=== PATIENT | female | born 1945 | race Caucasian/White ===

== ENCOUNTER → 2018-02-09 | Outpatient (CLI) | payer BC, MEDICARE | LOC: M RAD 06:38 | DX: I15.0 Renovascular hypertension (principal); N18.3 Chronic kidney disease, stage 3 (moderate) | CPT/HCPCS: 76775 ==

== ENCOUNTER 2021-05-05 07:44 | Inpatient (IN) | payer BC, MEDICARE ==
[2021-05-05] VITALS (11 sets, daily range): BP systolic 105–140; BP diastolic 57–65; O2SAT 86–95
[~2021-05-05] VITALS: Ht 167.6 cm; Wt 76.3 kg
[2021-05-05] MEDS ORDERED: METO1TAB32 PO (07:54)
[2021-05-05] MEDS ORDERED: SOD1.479 (07:54)
[2021-05-05] MEDS ORDERED: AMLO1TAB24 PO (07:54)
[2021-05-05] MEDS ORDERED: OMEP40CA5 PO (07:54)
[2021-05-05] MEDS ORDERED: ACETAMINOPHEN TAB 650MG DOSE (2X325MG) PO ONE (08:15)
[2021-05-05 08:49] LABS: ABG BASE EXCESS -1.4 (-2.0-2.0); ABG HCO3 21.1 MEQ/L (22.0-26.0); ABG O2 SATURATION 91.9 % (95.0-99.0); ABG PARTIAL PRESSURE CO2 29.3 mmHg (35.0-45.0); ABG PARTIAL PRESSURE O2 58.5 mmHg (75.0-100.0); ABG STANDARD HCO3 23.2 MEQ/L (22.0-26.0); ABG pH (ARTERIAL) 7.476 UNITS (7.350-7.450)
[2021-05-05 08:53] LABS: BASO % 0.1 % (0.0-1.0); EOS % 0.3 % (0.0-3.0); HEMATOCRIT 36.8 % (36.0-47.0); HEMOGLOBIN 11.9 g/dl (12.0-15.5); LYMPH # 0.9 10^3/uL (1.5-5.0); LYMPH % 8.6 % (24.0-44.0); MEAN CORPUSCULAR HEMOGLOBIN 29.8 pg (27.0-33.0); MEAN CORPUSCULAR HGB CONC 32.3 g/dl (32.0-36.5); MEAN CORPUSCULAR VOLUME 92.2 fl (80.0-96.0); MONO # 0.3 10^3/uL (0.0-0.8); MONO % 2.8 % (2.0-8.0); NEUTROPHILS # 9.2 10^3/uL (1.5-8.5); NEUTROPHILS % 87.7 % (36.0-66.0); PLATELET COUNT, AUTOMATED 225 10^3/uL (150-450); RED BLOOD COUNT 3.99 10^6/uL (4.00-5.40); WHITE BLOOD COUNT 10.5 10^3/uL (4.0-10.0)
[2021-05-05 09:11] LABS: INR 1.05; PROTHROMBIN TIME 14.1 SECONDS (12.7-14.5)
[2021-05-05 09:12] LABS: PARTIAL THROMBOPLASTIN TIME 33.9 SECONDS (25.9-37.0)
[2021-05-05 09:14] LABS: D-DIMER QUANT 1332.86 ng/ml (<500)
[2021-05-05 09:48] LABS: CK-MB VALUE MASS < 1.0 NG/ML (<3.6); CPK CREATINE PHOSPHOKINASE 80 U/L (26-192); MB/CK RELATIVE INDEX 1.25 (< OR =4)
[2021-05-05 09:50] LABS: ALBUMIN 2.9 GM/DL (3.2-5.2); BILIRUBIN,TOTAL 0.6 MG/DL (0.2-1.0); C REACTIVE PROTEIN QUANTITATIV 13.5 MG/DL (0.00-0.30); CALCIUM LEVEL 8.6 MG/DL (8.8-10.2); CREATININE FOR GFR 1.47 MG/DL (0.55-1.30); MAGNESIUM LEVEL 1.8 MG/DL (1.8-2.4); POTASSIUM SERUM 4.9 MEQ/L (3.5-5.1); TOTAL PROTEIN 6.3 GM/DL (6.4-8.2)
[2021-05-05] MEDS ORDERED: ISOVUE-370 76% 100ML VIAL As Ordered ONE (10:27)
[2021-05-05] MEDS ORDERED: IBUPROFEN 600MG TAB PO ONE (10:50)
[2021-05-05] MEDS ORDERED: ECOT81TA5 PO (12:22)
[2021-05-05] MEDS ORDERED: HOME MED LIST COMPLETE! XX SCH (12:25)
[2021-05-05] MEDS: NS 1,000 ML IV SCH (13:25)
[2021-05-05 13:44] LABS: HEMATOCRIT 33.5 % (36.0-47.0); HEMOGLOBIN 10.9 g/dl (12.0-15.5); MEAN CORPUSCULAR HEMOGLOBIN 29.9 pg (27.0-33.0); MEAN CORPUSCULAR HGB CONC 32.5 g/dl (32.0-36.5); PLATELET COUNT, AUTOMATED 212 10^3/uL (150-450); RED BLOOD COUNT 3.64 10^6/uL (4.00-5.40); WHITE BLOOD COUNT 9.7 10^3/uL (4.0-10.0)
[2021-05-05 13:54] LABS: INR 1.1; PROTHROMBIN TIME 14.7 SECONDS (12.7-14.5)
[2021-05-05 13:58] LABS: D-DIMER QUANT 1250.02 ng/ml (<500)
[2021-05-05 14:13] LABS: RSV AMPLIFICATION NEGATIVE (NEGATIVE)
[2021-05-05 14:14] LABS: LYMPHOCYTES 11 % (16-44); MONOCYTES 1 % (0-5); NEUTROPHILS 88 % (28-66); PLATELET ESTIMATE NORMAL (NORMAL)
[2021-05-05 14:52] LABS: ALBUMIN 2.7 GM/DL (3.2-5.2); BILIRUBIN,DIRECT 0.2 MG/DL (0.0-0.2); BILIRUBIN,TOTAL 0.5 MG/DL (0.2-1.0); C REACTIVE PROTEIN QUANTITATIV 14.7 MG/DL (0.00-0.30); CALCIUM LEVEL 8.2 MG/DL (8.8-10.2); CREATININE FOR GFR 1.31 MG/DL (0.55-1.30); GLOMERULAR FILTRATION RATE 42.3 (>39); MAGNESIUM LEVEL 2.1 MG/DL (1.8-2.4); POTASSIUM SERUM 4.1 MEQ/L (3.5-5.1); TOTAL PROTEIN 5.7 GM/DL (6.4-8.2)
[2021-05-05] MEDS ORDERED: SODIUM CHLORIDE 0.9% INJ 10 ML SYR IV ONE (15:00)
[2021-05-05] MEDS ORDERED: REMDESIVIR 200 MG in NS 250 ML IV ONE (15:00)
[2021-05-05] MEDS: dexameTHASONE 4 MG/ML 1ML VIAL (J1100 PER 1MG) IV SCH (15:51)
[2021-05-05 19:13] LABS: APPEARANCE, URINE CLOUDY (CLEAR); BACTERIA, URINE AUTO NEGATIVE (NEGATIVE); BILIRUBIN, URINE AUTO NEGATIVE (NEGATIVE); BLOOD, URINE BLOOD NEGATIVE (NEGATIVE); COLOR, URINE YELLOW (YELLOW); GLUCOSE, URINE (UA) AUTO NEGATIVE (NEGATIVE); KETONE, URINE AUTO NEGATIVE (NEGATIVE); LEUKOCYTE ESTERASE, URINE AUTO 1+ (NEGATIVE); MUCUS, URINE SMALL (NEGATIVE); NITRITE, URINE AUTO NEGATIVE (NEGATIVE); PROTEIN, URINE AUTO 1+ mg/dL (NEGATIVE); RBC, URINE AUTO 3 /HPF (0-3); SQUAMOUS EPITHELIAL CELL UR AU 3 /HPF (0-6); URIC ACID CRYSTALS MODERATE; UROBILINOGEN, URINE AUTO 0.2 mg/dL (0.0-2.0); WBC, URINE AUTO 11 /HPF (0-3)
[2021-05-05] MEDS: amLODIPine 5 MG TAB PO SCH (20:12)
[2021-05-05] MEDS: ASPIRIN 81MG ENTERIC TABLET PO SCH (20:12)
[2021-05-05 20:14] LABS: SPECIFIC GRAVITY URINE AUTO >1.060 (1.002-1.035)
[2021-05-06] VITALS (11 sets, daily range): BP systolic 118–142; BP diastolic 59–65; O2SAT 90–96
[2021-05-06] MEDS: NS 1,000 ML IV SCH (04:42)
[2021-05-06 09:12] LABS: BASO % 0.1 % (0.0-1.0); HEMATOCRIT 34.3 % (36.0-47.0); LYMPH # 0.9 10^3/uL (1.5-5.0); LYMPH % 6.4 % (24.0-44.0); MEAN CORPUSCULAR HEMOGLOBIN 29.8 pg (27.0-33.0); MEAN CORPUSCULAR HGB CONC 32.1 g/dl (32.0-36.5); MONO # 0.2 10^3/uL (0.0-0.8); MONO % 1.6 % (2.0-8.0); NEUTROPHILS # 12.6 10^3/uL (1.5-8.5); NEUTROPHILS % 90.8 % (36.0-66.0); PLATELET COUNT, AUTOMATED 215 10^3/uL (150-450); RED BLOOD COUNT 3.69 10^6/uL (4.00-5.40); WHITE BLOOD COUNT 13.8 10^3/uL (4.0-10.0)
[2021-05-06 09:28] LABS: CALCIUM LEVEL 8.2 MG/DL (8.8-10.2); CREATININE FOR GFR 1.04 MG/DL (0.55-1.30); GLOMERULAR FILTRATION RATE 55.1 (>39); MAGNESIUM LEVEL 2.1 MG/DL (1.8-2.4); POTASSIUM SERUM 4.2 MEQ/L (3.5-5.1)
[2021-05-06] MEDS: OMEPRAZOLE 20MG CAP PO SCH (10:07)
[2021-05-06] MEDS: ENOXAPARIN 40MG/0.4ML SYRINGE (J1650 PER 10MG) SC SCH (10:07)
[2021-05-06] MEDS: dexameTHASONE 4 MG/ML 1ML VIAL (J1100 PER 1MG) IV SCH (10:08)
[2021-05-06] MEDS: METOPROLOL SUCC *XL* 12.5MG PER 1/2 TAB (TopROL *XL*) PO SCH (10:43)
[2021-05-06] MEDS: guaiFENesin ER 600 MG TAB PO SCH ×2 (13:11→22:00)
[2021-05-06 13:54] LABS: FREE T4 1.13 NG/DL (0.76-1.46); THYROID STIMULATING HORMONE 0.283 uIU/ML (0.358-3.740)
[2021-05-06] MEDS ORDERED: REMDESIVIR 100 MG in NS 250 ML IV SCH (15:00)
[2021-05-06] MEDS ORDERED: SODIUM CHLORIDE 0.9% INJ 10 ML SYR IV SCH (15:00)
[2021-05-06] MEDS: ASPIRIN 81MG ENTERIC TABLET PO SCH (21:59)
[2021-05-06] MEDS: amLODIPine 5 MG TAB PO SCH (22:00)
[2021-05-07 05:25] VITALS: BP 118/57
[2021-05-07 06:19] LABS: BASO % 0.1 % (0.0-1.0); HEMATOCRIT 32.6 % (36.0-47.0); HEMOGLOBIN 10.5 g/dl (12.0-15.5); LYMPH # 0.9 10^3/uL (1.5-5.0); LYMPH % 8.5 % (24.0-44.0); MEAN CORPUSCULAR HEMOGLOBIN 30.1 pg (27.0-33.0); MEAN CORPUSCULAR HGB CONC 32.2 g/dl (32.0-36.5); MEAN CORPUSCULAR VOLUME 93.4 fl (80.0-96.0); MONO # 0.3 10^3/uL (0.0-0.8); MONO % 2.6 % (2.0-8.0); NEUTROPHILS # 9.4 10^3/uL (1.5-8.5); NEUTROPHILS % 88.4 % (36.0-66.0); PLATELET COUNT, AUTOMATED 235 10^3/uL (150-450); RED BLOOD COUNT 3.49 10^6/uL (4.00-5.40); WHITE BLOOD COUNT 10.6 10^3/uL (4.0-10.0)
[2021-05-07 06:35] LABS: INR 1.12; PROTHROMBIN TIME 14.9 SECONDS (12.7-14.5)
[2021-05-07 06:36] LABS: PARTIAL THROMBOPLASTIN TIME 44.5 SECONDS (25.9-37.0)
[2021-05-07 06:50] LABS: ALBUMIN 2.3 GM/DL (3.2-5.2); ALT/SGPT 27 U/L (12-78); BILIRUBIN,DIRECT < 0.1 MG/DL (0.0-0.2); BILIRUBIN,TOTAL 0.2 MG/DL (0.2-1.0); BLOOD UREA NITROGEN 26 MG/DL (7-18); CARBON DIOXIDE LEVEL 23 MEQ/L (21-32); CHLORIDE LEVEL 111 MEQ/L (98-107); CREATININE FOR GFR 1.12 MG/DL (0.55-1.30); FERRITIN 1152 NG/ML (8-252); GLOMERULAR FILTRATION RATE 50.6 (>39); GLUCOSE, FASTING 141 MG/DL (70-100); LDH LACTATE DEHYDROGENASE 193 U/L (84-246); MAGNESIUM LEVEL 2.2 MG/DL (1.8-2.4); NT-PRO BNP 551 PG/ML (<125); POTASSIUM SERUM 4.7 MEQ/L (3.5-5.1); SODIUM LEVEL 141 MEQ/L (136-145); TOTAL PROTEIN 5.9 GM/DL (6.4-8.2)
[2021-05-07] MEDS: OMEPRAZOLE 20MG CAP PO SCH (08:40)
[2021-05-07] MEDS: guaiFENesin ER 600 MG TAB PO SCH (08:40)
[2021-05-07 08:41] VITALS: BP 118/52
[2021-05-07] MEDS: METOPROLOL SUCC *XL* 12.5MG PER 1/2 TAB (TopROL *XL*) PO SCH (08:41)
[2021-05-07] MEDS: dexameTHASONE 4 MG/ML 1ML VIAL (J1100 PER 1MG) IV SCH (08:42)
[2021-05-07] MEDS: ENOXAPARIN 40MG/0.4ML SYRINGE (J1650 PER 10MG) SC SCH (08:42)
[2021-05-07] MEDS ORDERED: MUCI600T31 PO (09:28)
[2021-05-07] MEDS ORDERED: PRED10TA2 PO (09:28)
[2021-05-07 11:43] VITALS: BP 136/63
[2021-06-23] MEDS ORDERED: APAP325T4 PO (08:22)
== END 2021-05-07 13:05 | disposition home health service (06) | DRG 137 ==
LOC: M ED 07:44 → M ED INP 12:49 → ENRESERV 13:23 → M 4MAIN 14:45
PROVIDERS: ADMIT Family Medicine; ATTEND Internal Medicine
DX: U07.1 COVID-19 (principal); J96.01 Acute respiratory failure with hypoxia; J12.82 Pneumonia due to coronavirus disease 2019; N17.9 Acute kidney failure, unspecified; E87.2 Acidosis; R91.8 Other nonspecific abnormal finding of lung field; K21.9 Gastro-esophageal reflux disease without esophagitis; E01.0 Iodine-deficiency related diffuse (endemic) goiter; Z79.82 Long term (current) use of aspirin; Z79.899 Other long term (current) drug therapy; E78.5 Hyperlipidemia, unspecified; Z87.891 Personal history of nicotine dependence; I10 Essential (primary) hypertension

== ENCOUNTER → 2021-06-23 | Outpatient (CLI) | payer BC, MEDICARE ==
[~2021-06-23] MED LIST: AMLO1TAB24 PO; APAP325T4 PO; ECOT81TA5 PO; METO1TAB32 PO; MUCI600T31 PO; OMEP40CA5 PO; PRED10TA2 PO; SOD1.479
== END ==
LOC: M PLARAD 12:03
PROVIDERS: ATTEND Internal Medicine Pulmonary Disease
DX: R91.8 Other nonspecific abnormal finding of lung field (principal); N60.11 Diffuse cystic mastopathy of right breast; N60.12 Diffuse cystic mastopathy of left breast
CPT/HCPCS: 78815; A9552

== ENCOUNTER → 2021-07-02 | Outpatient (CLI) | payer BC, MEDICARE | LOC: M LABSMTC 09:23 | PROVIDERS: ATTEND Anesthesiology | DX: Z01.812 Encounter for preprocedural laboratory examination (principal); Z11.52 Encounter for screening for COVID-19 ==

== ENCOUNTER 2021-07-07 09:12 | Day surgery (SDC) | payer BC, MEDICARE ==
[~2021-07-07] VITALS: Ht 168.9 cm; Wt 81.1 kg
[2021-07-07] MEDS ORDERED: LIDOCAINE 2% 100MG/5ML SDV (FOR ANES.) As Ordered ONE (10:08)
[2021-07-07] MEDS ORDERED: propofoL 200 MG/20 ML VIAL As Ordered ONE ×2 (10:08→10:48)
[2021-07-07] MEDS ORDERED: fentaNYL 100 MCG/2 ML INJECTION As Ordered ONE (10:08)
[2021-07-07] MEDS ORDERED: NS 1,000 ML IV ONE (10:10)
[2021-07-07 11:19] VITALS: BP 131/74
== END 2021-07-07 11:21 | disposition home or self-care (01) ==
LOC: M OPP 09:12
PROVIDERS: ATTEND Internal Medicine Gastroenterology
DX: Z12.11 Encounter for screening for malignant neoplasm of colon (principal); K57.30 Diverticulosis of large intestine without perforation or abscess without bleeding; K64.0 First degree hemorrhoids; K22.89 Other specified disease of esophagus; K44.9 Diaphragmatic hernia without obstruction or gangrene; R13.10 Dysphagia, unspecified; R07.89 Other chest pain; Z79.82 Long term (current) use of aspirin; Z79.899 Other long term (current) drug therapy; Z88.8 Allergy status to other drugs, medicaments and biological substances
CPT/HCPCS: 43239; 43249; 45378; 88305; J3010

== ENCOUNTER → 2021-08-15 | Outpatient (CLI) | payer BC, MEDICARE ==
[2021-08-15 09:50] LABS: CREATININE FOR GFR 1.22 MG/DL (0.55-1.30); GLOMERULAR FILTRATION RATE 45.9 (>39)
== END ==
LOC: M LAB 08:01
PROVIDERS: ATTEND Internal Medicine Pulmonary Disease
DX: R91.8 Other nonspecific abnormal finding of lung field (principal)

== ENCOUNTER → 2021-08-20 | Outpatient (CLI) | payer BC, MEDICARE ==
[~2021-08-20] MED LIST changes: +ISOVUE-370 76% 100ML VIAL As Ordered ONE
== END ==
LOC: M RAD 10:02
PROVIDERS: ATTEND Internal Medicine Pulmonary Disease
DX: R91.8 Other nonspecific abnormal finding of lung field (principal)
CPT/HCPCS: 71260; Q9967

== ENCOUNTER → 2021-11-28 | Outpatient (CLI) | payer BC, MEDICARE | LOC: M RAD 09:25 | PROVIDERS: ATTEND Internal Medicine Pulmonary Disease | DX: R91.8 Other nonspecific abnormal finding of lung field (principal) | CPT/HCPCS: 71260; Q9967 ==

== ENCOUNTER → 2022-03-16 | Outpatient (CLI) | payer BC, MEDICARE ==
[~2022-03-16] MED LIST changes: -ISOVUE-370 76% 100ML VIAL As Ordered ONE
== END ==
LOC: M PLAIMG 12:09
PROVIDERS: ATTEND Internal Medicine Pulmonary Disease
DX: R91.8 Other nonspecific abnormal finding of lung field (principal); J43.9 Emphysema, unspecified; E07.9 Disorder of thyroid, unspecified; N60.01 Solitary cyst of right breast; N60.02 Solitary cyst of left breast

== ENCOUNTER → 2023-04-09 | Outpatient (CLI) | payer BC, MEDICARE | LOC: M PLAIMG 11:10 | PROVIDERS: ATTEND Internal Medicine Pulmonary Disease | DX: R91.8 Other nonspecific abnormal finding of lung field (principal); E04.8 Other specified nontoxic goiter; J43.2 Centrilobular emphysema; N60.02 Solitary cyst of left breast ==

== ENCOUNTER 2023-04-28 22:54 | Inpatient (IN) | payer BC, MEDICARE ==
[~2023-04-28] VITALS: Ht 167.6 cm; Wt 86.5 kg
[~2023-04-28 22:54] MED LIST changes: -ALBU8.5H INH; -CEFD300CAP PO; -FLOM0.4C39 PO
[2023-04-29] VITALS (11 sets, daily range): BP systolic 112–152; BP diastolic 54–64; TEMP 96.8–98.7; O2SAT 82–96
[2023-04-29] MEDS ORDERED: ACETAMINOPHEN TAB 650MG DOSE (2X325MG) PO PRN (01:40)
[2023-04-29] MEDS ORDERED: NS 1,000 ML IV SCH (01:40)
[2023-04-29 03:08] LABS: HEMATOCRIT 32.8 % (36.0-47.0); HEMOGLOBIN 10.6 g/dl (12.0-15.5); MEAN CORPUSCULAR HEMOGLOBIN 30.7 pg (27.0-33.0); MEAN CORPUSCULAR HGB CONC 32.3 g/dl (32.0-36.5); MEAN CORPUSCULAR VOLUME 95.1 fl (80.0-96.0); PLATELET COUNT, AUTOMATED 297 10^3/uL (150-450); RED BLOOD COUNT 3.45 10^6/uL (4.00-5.40); WHITE BLOOD COUNT 12.9 10^3/uL (4.0-10.0)
[2023-04-29 03:12] LABS: ALBUMIN 3.1 G/DL (3.2-5.2); ALKALINE PHOSPHATASE 62 U/L (46-116); ALT/SGPT 14 U/L (7.0-40); AST/SGOT < 8 U/L (<34); BILIRUBIN,TOTAL 0.6 MG/DL (0.3-1.2); BLOOD UREA NITROGEN 25 MG/DL (9-23); CALCIUM LEVEL 8.4 MG/DL (8.3-10.6); CARBON DIOXIDE LEVEL 25 MMOL/L (20-31); CHLORIDE LEVEL 108 MMOL/L (98-107); CREATININE FOR GFR 1.29 MG/DL (0.55-1.30); GLOMERULAR FILTRATION RATE 42.8 (>39); GLUCOSE, FASTING 108 MG/DL (74-106); SODIUM LEVEL 142 MMOL/L (136-145); TOTAL PROTEIN 5.1 G/DL (5.7-8.2)
[2023-04-29 03:22] LABS: INR 1.05; PROTHROMBIN TIME 13.4 SECONDS (12.5-14.5)
[2023-04-29] MEDS ORDERED: ALBU8.5H INH (04:02)
[2023-04-29] MEDS ORDERED: HOME MED LIST COMPLETE! XX SCH (04:05)
[2023-04-29] MEDS ORDERED: ONDANSETRON 4MG 2ML VIAL IV PRN ×2 (05:20→10:50)
[2023-04-29] MEDS ORDERED: ISOVUE-300 61% 100ML VIAL As Ordered ONE (09:30)
[2023-04-29] MEDS ORDERED: fentaNYL 100 MCG/2 ML INJECTION As Ordered ONE (10:26)
[2023-04-29] MEDS ORDERED: MIDAZOLAM INJ 2MG/2ML VIAL As Ordered ONE (10:26)
[2023-04-29] MEDS ORDERED: LIDOCAINE 2% 100MG/5ML SDV (FOR ANES.) As Ordered ONE (10:26)
[2023-04-29] MEDS ORDERED: propofoL 200 MG/20 ML VIAL As Ordered ONE (10:26)
[2023-04-29] MEDS ORDERED: cefTRIAXone SOD 1GM VIAL As Ordered ONE (10:34)
[2023-04-29] MEDS ORDERED: KETOROLAC 60MG 2ML VIAL As Ordered ONE (10:49)
[2023-04-29] MEDS ORDERED: METOCLOPRAMIDE INJ 10MG/2ML VIAL As Ordered ONE (10:49)
[2023-04-29] MEDS ORDERED: fentaNYL 100 MCG/2 ML INJECTION IV PRN (10:50)
[2023-04-29] MEDS ORDERED: oxyCODONE 5MG TAB PO PRN (10:50)
[2023-04-29] MEDS ORDERED: LR 1,000 ML IV SCH (10:50)
[2023-04-29] MEDS ORDERED: FLOM0.4C39 PO (10:58)
[2023-04-29] MEDS ORDERED: CEFD300CAP PO (10:58)
[2023-04-29] MEDS: HYDROMORPHONE HCL 0.5 MG/ 0.5 ML SYRINGE IV PRN ×3 (11:22→11:34)
[2023-04-29] MEDS: TAMSULOSIN 0.4 MG CAP PO SCH (12:45)
[2023-04-29] MEDS ORDERED: NS 500 ML IV ONE ×2 (18:30→18:35)
[2023-04-29] MEDS: NS 1,000 ML IV SCH (19:19)
[2023-04-29] MEDS ORDERED: cefTRIAXone SOD 1 GM in D5W MINI-BAG PLUS 50 ML IV SCH (20:00)
[2023-04-30 00:45] LABS: VENOUS BASE EXCESS -4.4 (-2.0-2.0); VENOUS HCO3 21.7 MMOL/L (23.0-27.0); VENOUS O2 SATURATION 96.7 % (60.0-80.0); VENOUS PARTIAL PRESSURE O2 94.8 mmHg (30.0-50.0); VENOUS PH 7.311 UNITS (7.330-7.430); VENOUS STANDARD HCO3 20.8 MMOL/L; VENOUS TOTAL CO2 23.1 MMOL/L (24.0-28.0)
[2023-04-30 01:00] LABS: HEMATOCRIT 30.9 % (36.0-47.0); MEAN CORPUSCULAR HEMOGLOBIN 31.5 pg (27.0-33.0); MEAN CORPUSCULAR HGB CONC 32.4 g/dl (32.0-36.5); MEAN CORPUSCULAR VOLUME 97.5 fl (80.0-96.0); PLATELET COUNT, AUTOMATED 270 10^3/uL (150-450); RED BLOOD COUNT 3.17 10^6/uL (4.00-5.40)
[2023-04-30 01:04] LABS: WHITE BLOOD COUNT 37.1 10^3/uL (4.0-10.0)
[2023-04-30 01:15] LABS: ALBUMIN 2.9 G/DL (3.2-5.2); BILIRUBIN,TOTAL 0.6 MG/DL (0.3-1.2); CREATININE FOR GFR 1.47 MG/DL (0.55-1.30); GLOMERULAR FILTRATION RATE 36.8 (>39); POTASSIUM SERUM 4.4 MMOL/L (3.5-5.1); TOTAL PROTEIN 5.1 G/DL (5.7-8.2)
[2023-04-30] MEDS: PIPERACILLIN/TAZOBACTAM SOD 3.375 GM in D5W MINI-BAG PLUS 50 ML IV SCH ×2 (01:55→07:51)
[2023-04-30] MEDS: NS 1,000 ML IV SCH (01:56)
[2023-04-30 02:00] VITALS: BP 111/57; TEMP 97.7; O2SAT 94
[2023-04-30] MEDS ORDERED: VANCOMYCIN HCL 750 MG, VIAL MATE ADAPTER 1 EACH in D5W 250 ML IV ONE ×3 (03:00→13:00)
[2023-04-30 06:00] VITALS: BP 117/49; TEMP 97.7; O2SAT 94
[2023-04-30 06:13] LABS: HEMATOCRIT 30.4 % (36.0-47.0); HEMOGLOBIN 9.7 g/dl (12.0-15.5); MEAN CORPUSCULAR HEMOGLOBIN 31.6 pg (27.0-33.0); MEAN CORPUSCULAR HGB CONC 31.9 g/dl (32.0-36.5); PLATELET COUNT, AUTOMATED 252 10^3/uL (150-450); RED BLOOD COUNT 3.07 10^6/uL (4.00-5.40)
[2023-04-30 06:16] LABS: WHITE BLOOD COUNT 30.4 10^3/uL (4.0-10.0)
[2023-04-30 06:41] LABS: ALBUMIN 2.8 G/DL (3.2-5.2); BILIRUBIN,TOTAL 0.7 MG/DL (0.3-1.2); CALCIUM LEVEL 8.1 MG/DL (8.3-10.6); CREATININE FOR GFR 1.47 MG/DL (0.55-1.30); GLOMERULAR FILTRATION RATE 36.8 (>39); POTASSIUM SERUM 4.5 MMOL/L (3.5-5.1); TOTAL PROTEIN 4.9 G/DL (5.7-8.2)
[2023-04-30 07:42] LABS: C REACTIVE PROTEIN QUANTITATIV 15.6 MG/DL (<1.0)
[2023-04-30 07:51] LABS: PROCALCITONIN 45.54 ng/ml
[2023-04-30] MEDS: TAMSULOSIN 0.4 MG CAP PO SCH (07:51)
[2023-04-30 10:00] VITALS: BP 118/58; TEMP 97.7; O2SAT 92
[2023-04-30 14:00] VITALS: BP 110/56; TEMP 98.1; O2SAT 92
[2023-04-30] MEDS: PIPERACILLIN/TAZOBACTAM SOD 2.25 GM in D5W MINI-BAG PLUS 50 ML IV SCH ×2 (14:50→21:03)
[2023-04-30] MEDS: HEPARIN SOD (PORCINE) 5000UNITS/ML 1ML VIAL/SYRINGE SQ SCH ×2 (14:51→21:04)
[2023-04-30 18:00] VITALS: BP 125/49; TEMP 97.9; O2SAT 92
[2023-04-30] MEDS ORDERED: VANCOMYCIN INTERMITTENT/PULSE DOSING BY CLINICAL PHARMACIST PER DOSING PROTOCOL XX SCH (19:00)
[2023-04-30] MEDS ORDERED: VANCOMYCIN HCL 1,000 MG, VIAL MATE ADAPTER 1 EACH in D5W 250 ML IV SCH ×2 (21:00→22:00)
[2023-04-30 22:00] VITALS: BP 138/57; TEMP 97.7; O2SAT 93
[2023-05-01 02:00] VITALS: BP 108/51; TEMP 97.7; O2SAT 93
[2023-05-01] MEDS: PIPERACILLIN/TAZOBACTAM SOD 2.25 GM in D5W MINI-BAG PLUS 50 ML IV SCH (02:47)
[2023-05-01] MEDS: HEPARIN SOD (PORCINE) 5000UNITS/ML 1ML VIAL/SYRINGE SQ SCH ×3 (05:14→21:02)
[2023-05-01 05:26] LABS: BASO % 0.3 % (0.0-1.0); EOS # 0.3 10^3/uL (0.0-0.5); EOS % 2.1 % (0.0-3.0); HEMATOCRIT 29.8 % (36.0-47.0); HEMOGLOBIN 9.4 g/dl (12.0-15.5); LYMPH # 1.6 10^3/uL (1.5-5.0); LYMPH % 10.9 % (24.0-44.0); MEAN CORPUSCULAR HEMOGLOBIN 30.8 pg (27.0-33.0); MEAN CORPUSCULAR HGB CONC 31.5 g/dl (32.0-36.5); MEAN CORPUSCULAR VOLUME 97.7 fl (80.0-96.0); MONO # 0.8 10^3/uL (0.0-0.8); MONO % 5.2 % (2.0-8.0); NEUTROPHILS # 11.6 10^3/uL (1.5-8.5); NEUTROPHILS % 80.7 % (36.0-66.0); PLATELET COUNT, AUTOMATED 221 10^3/uL (150-450); RED BLOOD COUNT 3.05 10^6/uL (4.00-5.40); WHITE BLOOD COUNT 14.3 10^3/uL (4.0-10.0)
[2023-05-01 05:52] LABS: C REACTIVE PROTEIN QUANTITATIV 9.8 MG/DL (<1.0)
[2023-05-01 05:53] LABS: CALCIUM LEVEL 8.2 MG/DL (8.3-10.6); CREATININE FOR GFR 1.25 MG/DL (0.55-1.30); GLOMERULAR FILTRATION RATE 44.4 (>39); MAGNESIUM LEVEL 1.8 MG/DL (1.8-2.4); POTASSIUM SERUM 4.4 MMOL/L (3.5-5.1)
[2023-05-01 06:00] VITALS: BP 116/54; TEMP 97.9; O2SAT 93
[2023-05-01] MEDS: TAMSULOSIN 0.4 MG CAP PO SCH (08:16)
[2023-05-01] MEDS: PIPERACILLIN/TAZOBACTAM SOD 3.375 GM in D5W MINI-BAG PLUS 50 ML IV SCH ×2 (08:28→14:39)
[2023-05-01] MEDS ORDERED: BISACODYL 10MG SUPP PR ONE (09:30)
[2023-05-01 10:00] VITALS: BP 134/56; TEMP 98.1; O2SAT 94
[2023-05-01] MEDS: MIRALAX *UNIT DOSE* 17GM PACKET PO SCH (11:12)
[2023-05-01 14:00] VITALS: BP 130/60; TEMP 97.9; O2SAT 93
[2023-05-01 18:00] VITALS: BP 138/60; TEMP 98.4; O2SAT 91
[2023-05-01 20:03] VITALS: BP 176/82; TEMP 98.6; O2SAT 94
[2023-05-01] MEDS ORDERED: ALBUTEROL 90 MCG/ACT 8GM HFA INHALER INH PRN (20:25)
[2023-05-01] MEDS ORDERED: ASPIRIN 81MG ENTERIC TABLET PO SCH (21:00)
[2023-05-01] MEDS ORDERED: amLODIPine 5 MG TAB PO SCH (21:00)
[2023-05-01] MEDS: CEFDINIR 300 MG CAP (OMNICEF) PO SCH (21:01)
[2023-05-01] MEDS ORDERED: RAMELTEON 8 MG TAB (ROZEREM) PO PRN (21:15)
[2023-05-02 02:00] VITALS: BP 126/59; TEMP 99; O2SAT 90
[2023-05-02 05:34] LABS: BASO # 0.1 10^3/uL (0.0-0.2); BASO % 0.5 % (0.0-1.0); EOS # 0.3 10^3/uL (0.0-0.5); EOS % 2.8 % (0.0-3.0); HEMATOCRIT 29.9 % (36.0-47.0); HEMOGLOBIN 9.6 g/dl (12.0-15.5); LYMPH # 2.2 10^3/uL (1.5-5.0); LYMPH % 21.3 % (24.0-44.0); MEAN CORPUSCULAR HEMOGLOBIN 30.7 pg (27.0-33.0); MEAN CORPUSCULAR HGB CONC 32.1 g/dl (32.0-36.5); MEAN CORPUSCULAR VOLUME 95.5 fl (80.0-96.0); MONO # 0.8 10^3/uL (0.0-0.8); MONO % 7.3 % (2.0-8.0); NEUTROPHILS % 66.6 % (36.0-66.0); PLATELET COUNT, AUTOMATED 252 10^3/uL (150-450); RED BLOOD COUNT 3.13 10^6/uL (4.00-5.40); WHITE BLOOD COUNT 10.5 10^3/uL (4.0-10.0)
[2023-05-02 05:59] LABS: C REACTIVE PROTEIN QUANTITATIV 7.4 MG/DL (<1.0)
[2023-05-02 06:00] LABS: CALCIUM LEVEL 8.6 MG/DL (8.3-10.6); CREATININE FOR GFR 1.15 MG/DL (0.55-1.30); GLOMERULAR FILTRATION RATE 48.8 (>39); MAGNESIUM LEVEL 1.7 MG/DL (1.8-2.4); POTASSIUM SERUM 4.2 MMOL/L (3.5-5.1)
[2023-05-02 06:18] VITALS: BP 142/64; TEMP 97.5; O2SAT 95
[2023-05-02] MEDS: HEPARIN SOD (PORCINE) 5000UNITS/ML 1ML VIAL/SYRINGE SQ SCH (06:37)
[2023-05-02 08:44] VITALS: BP 142/64
[2023-05-02] MEDS: CEFDINIR 300 MG CAP (OMNICEF) PO SCH (08:44)
[2023-05-02] MEDS: TAMSULOSIN 0.4 MG CAP PO SCH (08:44)
[2023-05-02] MEDS: MIRALAX *UNIT DOSE* 17GM PACKET PO SCH (09:00)
[2023-05-02] MEDS ORDERED: METOPROLOL SUCC *XL* 12.5MG PER 1/2 TAB (TopROL *XL*) PO SCH (09:00)
[2023-05-02 10:00] VITALS: BP 120/62; TEMP 97.9; O2SAT 91
[2023-05-02] MEDS ORDERED: MAG SULF 1GM/100ML (MAG RUN) 1 GM in IV 1 EA IV ONE (10:00)
[2023-05-02] MEDS ORDERED: CEFD300CAP PO (10:10)
[2023-05-02] MEDS ORDERED: MAGNESIUM OXIDE 400MG TAB (MAG-OX) PO ONE (10:30)
== END 2023-05-02 11:51 | disposition home health service (06) | DRG 463 ==
LOC: M MSPAV 04-29 01:30
PROVIDERS: ADMIT Family Medicine; ATTEND Family Medicine
PROC: 0T774DZ Dilation of Left Ureter with Intraluminal Device, Percutaneous Endoscopic Approach (ICD-10-PCS; principal; 2023-04-29 11:30)
DX: N39.0 Urinary tract infection, site not specified (principal); N17.9 Acute kidney failure, unspecified; E87.20 Acidosis, unspecified; J44.1 Chronic obstructive pulmonary disease with (acute) exacerbation; N13.2 Hydronephrosis with renal and ureteral calculous obstruction; I10 Essential (primary) hypertension; E78.5 Hyperlipidemia, unspecified; Z87.891 Personal history of nicotine dependence; Z88.8 Allergy status to other drugs, medicaments and biological substances; Z79.899 Other long term (current) drug therapy; Z79.82 Long term (current) use of aspirin; Z86.16 Personal history of COVID-19; Z68.31 Body mass index [BMI] 31.0-31.9, adult; R91.8 Other nonspecific abnormal finding of lung field; K21.9 Gastro-esophageal reflux disease without esophagitis

== ENCOUNTER → 2023-04-28 | Outpatient (CLI) | payer BC, MEDICARE ==
[~2023-04-28] MED LIST changes: +ALBU8.5H INH; +CEFD300CAP PO; +FLOM0.4C39 PO
== END ==
LOC: M RAD 10:56
PROVIDERS: ATTEND Family Medicine
DX: E04.2 Nontoxic multinodular goiter (principal)

== ENCOUNTER 2023-06-04 09:55 | Day surgery (SDC) | payer BC, MEDICARE ==
[~2023-06-04] VITALS: Ht 167.6 cm; Wt 82.7 kg
[~2023-06-04 09:55] MED LIST changes: +ACET-897 PO; +ALBU8.5H INH; +CEFD300CAP PO; +FLOM0.4C39 PO; +ceFAZolin SOD 2 GM in IV 1 EA IV ONE
[2023-06-04] MEDS ORDERED: LR 1,000 ML IV SCH (11:05)
[2023-06-04] MEDS ORDERED: ONDANSETRON 4MG 2ML VIAL As Ordered ONE (11:17)
[2023-06-04] MEDS ORDERED: fentaNYL 100 MCG/2 ML INJECTION As Ordered ONE (11:17)
[2023-06-04] MEDS ORDERED: LIDOCAINE 2% 100MG/5ML SDV (FOR ANES.) As Ordered ONE (11:17)
[2023-06-04] MEDS ORDERED: propofoL 200 MG/20 ML VIAL As Ordered ONE (11:17)
[2023-06-04] MEDS ORDERED: ISOVUE-300 61% 100ML VIAL As Ordered ONE (12:21)
[2023-06-04] MEDS ORDERED: MORPHINE 2 MG/ML 1ML VIAL IV PRN (13:20)
[2023-06-04] MEDS ORDERED: fentaNYL 100 MCG/2 ML INJECTION IV PRN (13:20)
[2023-06-04] MEDS ORDERED: ONDANSETRON 4MG 2ML VIAL IV PRN (13:20)
[2023-06-04] MEDS ORDERED: oxyCODONE 5MG TAB PO PRN (13:20)
[2023-06-04] MEDS ORDERED: PERCOCET 5MG/325MG TAB PO PRN (14:50)
[2023-06-04 15:40] VITALS: BP 173/75; TEMP 97.2; O2SAT 94
== END 2023-06-04 16:20 | disposition home or self-care (01) ==
LOC: M SDC 09:55
PROVIDERS: ATTEND Urology
DX: N20.0 Calculus of kidney (principal); J44.9 Chronic obstructive pulmonary disease, unspecified; I12.9 Hypertensive chronic kidney disease with stage 1 through stage 4 chronic kidney disease, or unspecified chronic kidney disease; N18.4 Chronic kidney disease, stage 4 (severe); I47.10 Supraventricular tachycardia, unspecified; Z79.899 Other long term (current) drug therapy; K21.9 Gastro-esophageal reflux disease without esophagitis; Z79.82 Long term (current) use of aspirin; E04.9 Nontoxic goiter, unspecified; Z88.8 Allergy status to other drugs, medicaments and biological substances; Z87.891 Personal history of nicotine dependence; Z90.710 Acquired absence of both cervix and uterus
CPT/HCPCS: 52332; 52352; 76000; 82365; C1769; C1894; C2617; J1100; J2405; J3010; Q9967

== ENCOUNTER → 2023-12-24 | Outpatient (CLI) | payer BC, MEDICARE ==
[~2023-12-24] MED LIST changes: +LIDOCAINE 1% MDV 20ML VIAL As Ordered ONE; -ceFAZolin SOD 2 GM in IV 1 EA IV ONE
[2023-12-24 12:50] VITALS: TEMP 97.9
[2023-12-24 14:02] VITALS: BP 185/90; O2SAT 96
== END ==
LOC: M IRPRO 12:21
PROVIDERS: ATTEND Otolaryngology
DX: E04.2 Nontoxic multinodular goiter (principal)

== ENCOUNTER → 2024-01-03 | Outpatient (CLI) | payer BC, MEDICARE ==
[~2024-01-03] MED LIST changes: -LIDOCAINE 1% MDV 20ML VIAL As Ordered ONE
== END ==
LOC: M RAD 11:18
PROVIDERS: ATTEND Urology
DX: N20.0 Calculus of kidney (principal); K76.0 Fatty (change of) liver, not elsewhere classified

== ENCOUNTER → 2024-05-01 | Outpatient (CLI) | payer BC, MEDICARE | LOC: M RAD 09:14 | PROVIDERS: ATTEND Internal Medicine Pulmonary Disease | DX: R91.8 Other nonspecific abnormal finding of lung field (principal) ==

== ENCOUNTER 2024-05-14 22:43 | Inpatient (IN) | payer BC, MEDICARE ==
[~2024-05-14] VITALS: Ht 167.6 cm; Wt 87.0 kg
[2024-05-15] VITALS (8 sets, daily range): BP systolic 124–144; BP diastolic 50–82; TEMP 96.6–98.1; O2SAT 91–96
[2024-05-15] MEDS: ACETAMINOPHEN *IV* 1,000 MG in IV 1 EA IV ONE (02:26)
[2024-05-15] MEDS: ONDANSETRON 4MG 2ML VIAL IV ONE (02:26)
[2024-05-15 02:31] LABS: BASO % 0.3 % (0.0-1.0); EOS # 0.2 10^3/uL (0.0-0.5); EOS % 1.1 % (0.0-3.0); HEMOGLOBIN 11.8 g/dl (12.0-15.5); LYMPH % 22.3 % (24.0-44.0); MEAN CORPUSCULAR HGB CONC 32.8 g/dl (32.0-36.5); MEAN CORPUSCULAR VOLUME 97.6 fl (80.0-96.0); MONO # 0.7 10^3/uL (0.0-0.8); MONO % 5.3 % (2.0-8.0); NEUTROPHILS # 9.4 10^3/uL (1.5-8.5); NEUTROPHILS % 70.6 % (36.0-66.0); PLATELET COUNT, AUTOMATED 339 10^3/uL (150-450); RED BLOOD COUNT 3.69 10^6/uL (4.00-5.40); WHITE BLOOD COUNT 13.4 10^3/uL (4.0-10.0)
[2024-05-15] MEDS: TAMSULOSIN 0.4 MG CAP PO ONE (02:47)
[2024-05-15 02:55] LABS: CREATININE FOR GFR 1.33 MG/DL (0.55-1.30); GLOMERULAR FILTRATION RATE 41.2 (>39); POTASSIUM SERUM 4.6 MMOL/L (3.5-5.1)
[2024-05-15] MEDS: cefTRIAXone SOD 1 GM in DEXTROSE 5% (D5W) ADV/MINI-BAG 50 ML IV ONE (02:55)
[2024-05-15] MEDS ORDERED: MOM 30ML SUSPENSION UDC PO PRN (03:10)
[2024-05-15] MEDS ORDERED: ACETAMINOPHEN 325 MG TAB PO PRN (03:10)
[2024-05-15] MEDS ORDERED: PROMETHAZINE 25MG/ML 1ML VIAL IV PRN (03:10)
[2024-05-15] MEDS ORDERED: MORPHINE 2 MG/ML 1ML VIAL IV PRN (03:10)
[2024-05-15] MEDS: NS 1,000 ML IV SCH ×2 (03:21→12:02)
[2024-05-15] MEDS ORDERED: ADVI200C8 PO (04:47)
[2024-05-15] MEDS ORDERED: HOME MED LIST COMPLETE! XX SCH (04:50)
[2024-05-15 07:06] LABS: HEMATOCRIT 32.4 % (36.0-47.0); HEMOGLOBIN 10.6 g/dl (12.0-15.5); MEAN CORPUSCULAR HGB CONC 32.7 g/dl (32.0-36.5); MEAN CORPUSCULAR VOLUME 97.9 fl (80.0-96.0); PLATELET COUNT, AUTOMATED 299 10^3/uL (150-450); RED BLOOD COUNT 3.31 10^6/uL (4.00-5.40); WHITE BLOOD COUNT 9.9 10^3/uL (4.0-10.0)
[2024-05-15 07:36] LABS: ALBUMIN 3.1 G/DL (3.2-5.2); ALKALINE PHOSPHATASE 66 U/L (35-104); ALT/SGPT 12 U/L (7.0-40); AST/SGOT < 8 U/L (<34); BILIRUBIN,TOTAL 0.6 MG/DL (0.3-1.2); BLOOD UREA NITROGEN 24 MG/DL (9-23); CALCIUM LEVEL 8.9 MG/DL (8.3-10.6); CARBON DIOXIDE LEVEL 26 MMOL/L (20-31); CHLORIDE LEVEL 109 MMOL/L (98-107); CREATININE FOR GFR 1.44 MG/DL (0.55-1.30); GLOMERULAR FILTRATION RATE 37.6 (>39); GLUCOSE, FASTING 98 MG/DL (74-106); POTASSIUM SERUM 4.4 MMOL/L (3.5-5.1); SODIUM LEVEL 141 MMOL/L (136-145); TOTAL PROTEIN 5.3 G/DL (5.7-8.2)
[2024-05-15] MEDS ORDERED: ONDANSETRON 4MG 2ML VIAL As Ordered ONE (08:58)
[2024-05-15] MEDS ORDERED: propofoL 200 MG/20 ML VIAL As Ordered ONE (08:58)
[2024-05-15] MEDS ORDERED: fentaNYL 100 MCG/2 ML INJECTION As Ordered ONE (08:58)
[2024-05-15] MEDS ORDERED: LIDOCAINE 2% 100MG/5ML SDV (FOR ANES.) As Ordered ONE (08:58)
[2024-05-15] MEDS: ISOVUE-300 61% 100ML VIAL As Ordered ONE (09:35)
[2024-05-15] MEDS: METOPROLOL SUCC *XL* 12.5MG PER 1/2 TAB (TopROL *XL*) PO SCH (12:01)
[2024-05-15] MEDS: DOCUSATE SODIUM 100MG CAPSULE PO SCH (12:01)
[2024-05-15] MEDS: HEPARIN SOD (PORCINE) 5000UNITS/ML 1ML VIAL/SYRINGE SC SCH (12:01)
[2024-05-15] MEDS: ASPIRIN 81MG ENTERIC TABLET PO SCH (20:24)
[2024-05-15] MEDS: amLODIPine 5 MG TAB PO SCH (20:30)
[2024-05-15] MEDS ORDERED: TAMSULOSIN 0.4 MG CAP PO SCH (21:00)
[2024-05-16 01:07] VITALS: BP 123/53; TEMP 97.9; O2SAT 90
[2024-05-16] MEDS: cefTRIAXone SOD 1 GM in DEXTROSE 5% (D5W) ADV/MINI-BAG 50 ML IV SCH (03:23)
[2024-05-16 04:15] VITALS: BP 129/48; TEMP 97.7; O2SAT 93
[2024-05-16 07:13] LABS: BASO % 0.1 % (0.0-1.0); EOS % 0.1 % (0.0-3.0); HEMATOCRIT 30.8 % (36.0-47.0); HEMOGLOBIN 9.7 g/dl (12.0-15.5); LYMPH # 1.5 10^3/uL (1.5-5.0); LYMPH % 17.4 % (24.0-44.0); MEAN CORPUSCULAR HEMOGLOBIN 31.1 pg (27.0-33.0); MEAN CORPUSCULAR HGB CONC 31.5 g/dl (32.0-36.5); MEAN CORPUSCULAR VOLUME 98.7 fl (80.0-96.0); MONO # 0.6 10^3/uL (0.0-0.8); MONO % 6.7 % (2.0-8.0); NEUTROPHILS # 6.6 10^3/uL (1.5-8.5); PLATELET COUNT, AUTOMATED 306 10^3/uL (150-450); RED BLOOD COUNT 3.12 10^6/uL (4.00-5.40); WHITE BLOOD COUNT 8.8 10^3/uL (4.0-10.0)
[2024-05-16 07:35] LABS: CREATININE FOR GFR 1.31 MG/DL (0.55-1.30); GLOMERULAR FILTRATION RATE 41.9 (>39); POTASSIUM SERUM 4.7 MMOL/L (3.5-5.1)
[2024-05-16 08:00] VITALS: BP 146/57; TEMP 97.7; O2SAT 95
[2024-05-16 09:00] VITALS: BP 147/56
[2024-05-16 09:34] VITALS: BP 147/56; O2SAT 95
== END 2024-05-16 12:28 | disposition home or self-care (01) | DRG 465 ==
LOC: M ED 22:43 → M ED INP 05-15 03:10 → M MS5PR 05-15 10:55
PROVIDERS: ADMIT Family Medicine; ATTEND Internal Medicine
PROC: 0TCB8ZZ Extirpation of Matter from Bladder, Via Natural or Artificial Opening Endoscopic (ICD-10-PCS; 2024-05-15)
PROC: 0T768DZ Dilation of Right Ureter with Intraluminal Device, Via Natural or Artificial Opening Endoscopic (ICD-10-PCS; principal; 2024-05-15 14:30)
DX: N13.2 Hydronephrosis with renal and ureteral calculous obstruction (principal); I12.9 Hypertensive chronic kidney disease with stage 1 through stage 4 chronic kidney disease, or unspecified chronic kidney disease; N18.30 Chronic kidney disease, stage 3 unspecified; E78.5 Hyperlipidemia, unspecified; K21.9 Gastro-esophageal reflux disease without esophagitis; Z79.82 Long term (current) use of aspirin; Z79.899 Other long term (current) drug therapy; Z88.8 Allergy status to other drugs, medicaments and biological substances

== ENCOUNTER → 2024-06-06 | Outpatient (CLI) | payer BC, MEDICARE ==
[~2024-06-06] MED LIST changes: +ADVI200C8 PO
== END ==
LOC: M PLARAD 13:19
PROVIDERS: ATTEND Internal Medicine Pulmonary Disease
DX: R91.1 Solitary pulmonary nodule (principal); N63.20 Unspecified lump in the left breast, unspecified quadrant
CPT/HCPCS: 78815; A9552

== ENCOUNTER → 2024-06-15 | Outpatient (CLI) | payer BC, MEDICARE ==
[2024-06-15 14:09] LABS: HEMATOCRIT 36.5 % (36.0-47.0); HEMOGLOBIN 11.6 g/dl (12.0-15.5); MEAN CORPUSCULAR HEMOGLOBIN 31.5 pg (27.0-33.0); MEAN CORPUSCULAR HGB CONC 31.8 g/dl (32.0-36.5); MEAN CORPUSCULAR VOLUME 99.2 fl (80.0-96.0); PLATELET COUNT, AUTOMATED 371 10^3/uL (150-450); RED BLOOD COUNT 3.68 10^6/uL (4.00-5.40)
[2024-06-15 14:14] LABS: ALBUMIN 3.9 G/DL (3.2-5.2); BILIRUBIN,TOTAL 0.8 MG/DL (0.3-1.2); CALCIUM LEVEL 9.6 MG/DL (8.3-10.6); CREATININE FOR GFR 1.22 MG/DL (0.55-1.30); GLOMERULAR FILTRATION RATE 45.5 (>39); POTASSIUM SERUM 4.5 MMOL/L (3.5-5.1); TOTAL PROTEIN 6.3 G/DL (5.7-8.2)
== END ==
LOC: M PLALAB 10:38
PROVIDERS: ATTEND Urology
DX: N20.1 Calculus of ureter (principal)

== ENCOUNTER → 2024-06-16 | Outpatient (CLI) | payer BC, MEDICARE | LOC: M RAD 11:57 | PROVIDERS: ATTEND Otolaryngology | DX: E04.9 Nontoxic goiter, unspecified (principal) ==

== ENCOUNTER 2024-06-26 10:15 | Day surgery (SDC) | payer BC, MEDICARE ==
[~2024-06-26] VITALS: Ht 167.6 cm; Wt 83.9 kg
[~2024-06-26 10:15] MED LIST changes: +OMEP-173 PO; +OXYB5TAB14 PO; +ROSU5TAB49 PO
[2024-06-26] MEDS ORDERED: NS (Normal Saline) 0.9% 1,000 ML IV SCH ×2 (10:20→13:40)
[2024-06-26] MEDS: SCOPOLAMINE 1MG TRANSDERMAL PATCH TOP ONE (11:35)
[2024-06-26] MEDS ORDERED: MIDAZOLAM INJ 2MG/2ML VIAL As Ordered ONE (12:08)
[2024-06-26] MEDS ORDERED: fentaNYL 100 MCG/2 ML INJECTION As Ordered ONE (12:08)
[2024-06-26] MEDS ORDERED: propofoL 200 MG/20 ML VIAL As Ordered ONE (12:09)
[2024-06-26] MEDS ORDERED: ACETAMINOPHEN 1000MG/100ML IV BAG As Ordered ONE (12:09)
[2024-06-26] MEDS ORDERED: LIDOCAINE 2% 100MG/5ML SDV (FOR ANES.) As Ordered ONE (12:09)
[2024-06-26] MEDS ORDERED: ONDANSETRON 4MG 2ML VIAL As Ordered ONE (12:09)
[2024-06-26] MEDS: ceFAZolin SOD 2 GM in IV 1 EA IV ONE (13:05)
[2024-06-26] MEDS: ISOVUE-300 61% 100ML VIAL As Ordered ONE (13:27)
[2024-06-26] MEDS ORDERED: MACR100C43 PO (13:37)
[2024-06-26] MEDS ORDERED: PYRI1TAB5 PO (13:37)
[2024-06-26] MEDS ORDERED: HYDROMORPHONE HCL 0.5 MG/ 0.5 ML SYRINGE IV PRN (13:40)
[2024-06-26] MEDS ORDERED: ONDANSETRON 4MG 2ML VIAL IV PRN (13:40)
[2024-06-26] MEDS ORDERED: oxyCODONE 5MG TAB PO PRN (13:40)
[2024-06-26] MEDS ORDERED: fentaNYL 100 MCG/2 ML INJECTION IV PRN (13:40)
[2024-06-26 15:25] VITALS: BP 155/80; TEMP 97.2; O2SAT 100
== END 2024-06-26 15:50 | disposition home or self-care (01) ==
LOC: M SDC 10:15
PROVIDERS: ATTEND Urology
DX: N20.1 Calculus of ureter (principal); N21.0 Calculus in bladder; N30.90 Cystitis, unspecified without hematuria; N32.89 Other specified disorders of bladder; J44.9 Chronic obstructive pulmonary disease, unspecified; I12.9 Hypertensive chronic kidney disease with stage 1 through stage 4 chronic kidney disease, or unspecified chronic kidney disease; N18.30 Chronic kidney disease, stage 3 unspecified; I47.10 Supraventricular tachycardia, unspecified; I70.8 Atherosclerosis of other arteries; Z79.899 Other long term (current) drug therapy; Z79.82 Long term (current) use of aspirin; Z87.19 Personal history of other diseases of the digestive system; K21.9 Gastro-esophageal reflux disease without esophagitis; Z90.710 Acquired absence of both cervix and uterus; Z87.891 Personal history of nicotine dependence; Z88.8 Allergy status to other drugs, medicaments and biological substances
CPT/HCPCS: 52356; 76000; C1769; C1894; C2617; J0131; J0690; J1100; J2250; J2405; J3010; Q9967

== ENCOUNTER → 2024-07-06 | Outpatient (CLI) | payer BC, MEDICARE ==
[~2024-07-06] MED LIST changes: +MACR100C43 PO; +PYRI1TAB5 PO
== END ==
LOC: M PLAIMG 12:57
PROVIDERS: ATTEND Internal Medicine Pulmonary Disease
DX: R91.8 Other nonspecific abnormal finding of lung field (principal)

== ENCOUNTER 2024-07-12 08:15 | Day surgery (SDC) | payer BC, MEDICARE ==
[~2024-07-12] VITALS: Ht 167.6 cm; Wt 85.9 kg
[2024-07-12] MEDS ORDERED: NS (Normal Saline) 0.9% 1,000 ML IV SCH ×2 (09:10→12:50)
[2024-07-12] MEDS ORDERED: ROCURONIUM BROMIDE 50MG/5ML VIAL As Ordered ONE (10:47)
[2024-07-12] MEDS ORDERED: SUGAMMADEX SODIUM 500 MG/5 ML VIAL (BRIDION) As Ordered ONE (10:47)
[2024-07-12] MEDS ORDERED: propofoL 200 MG/20 ML VIAL As Ordered ONE (10:47)
[2024-07-12] MEDS ORDERED: ONDANSETRON 4MG 2ML VIAL As Ordered ONE (10:47)
[2024-07-12] MEDS ORDERED: LIDOCAINE 2% 100MG/5ML SDV (FOR ANES.) As Ordered ONE (10:47)
[2024-07-12] MEDS ORDERED: fentaNYL 100 MCG/2 ML INJECTION As Ordered ONE (10:54)
[2024-07-12] MEDS: ALBUTEROL SULFATE 2.5MG/0.5ML INH NEB SOLN INH ONE (11:25)
[2024-07-12] MEDS: LIDOCAINE PRES-FREE 2% 10ML AMP NEB ONE (11:25)
[2024-07-12] MEDS: SCOPOLAMINE 1MG TRANSDERMAL PATCH TOP ONE (11:30)
[2024-07-12] MEDS ORDERED: THROMBIN 5,000 UNITS VIAL As Ordered ONE (11:32)
[2024-07-12] MEDS: CETACAINE SPRAY 5GM As Ordered ONE (11:55)
[2024-07-12] MEDS ORDERED: ACETAMINOPHEN 1000MG/100ML IV BAG As Ordered ONE (11:57)
[2024-07-12] MEDS: EPINEPHrine 1MG/10ML SYRINGE 1.5IN As Ordered ONE (12:12)
[2024-07-12] MEDS ORDERED: LABETALOL 100MG/20ML VIAL As Ordered ONE (12:31)
[2024-07-12] MEDS ORDERED: HYDROMORPHONE HCL 0.5 MG/ 0.5 ML SYRINGE IV PRN (12:50)
[2024-07-12] MEDS ORDERED: fentaNYL 100 MCG/2 ML INJECTION IV PRN (12:50)
[2024-07-12] MEDS ORDERED: oxyCODONE 5MG TAB PO PRN (12:50)
[2024-07-12] MEDS ORDERED: ONDANSETRON 4MG 2ML VIAL IV PRN (12:50)
[2024-07-12 13:50] VITALS: BP 132/60; TEMP 97.9; O2SAT 95
== END 2024-07-12 14:06 | disposition home or self-care (01) ==
LOC: M SDC 08:15
PROVIDERS: ATTEND Internal Medicine Pulmonary Disease
DX: C34.2 Malignant neoplasm of middle lobe, bronchus or lung (principal); I12.9 Hypertensive chronic kidney disease with stage 1 through stage 4 chronic kidney disease, or unspecified chronic kidney disease; J44.9 Chronic obstructive pulmonary disease, unspecified; N18.30 Chronic kidney disease, stage 3 unspecified; K21.9 Gastro-esophageal reflux disease without esophagitis; Z90.710 Acquired absence of both cervix and uterus; Z79.899 Other long term (current) drug therapy; Z79.82 Long term (current) use of aspirin; Z88.8 Allergy status to other drugs, medicaments and biological substances; E78.00 Pure hypercholesterolemia, unspecified; E04.1 Nontoxic single thyroid nodule; Z87.891 Personal history of nicotine dependence
CPT/HCPCS: 31625; 31627; 31652; 71045; 76000; 88173; 88305; A4648; C1601; J0131; J0171; J1100; J1920; J2405; J3010

== ENCOUNTER → 2024-08-14 | Outpatient (CLI) | payer BC, MEDICARE ==
[~2024-08-14] MED LIST changes: +PROHANCE 279.3MG/ML 15ML VIAL As Ordered ONE; +PROHANCE 279.3MG/ML 5ML VIAL As Ordered ONE
== END ==
LOC: M RAD 16:38
PROVIDERS: ATTEND Thoracic Surgery (Cardiothoracic Vascular Surgery)
DX: C7A.090 Malignant carcinoid tumor of the bronchus and lung (principal); G31.9 Degenerative disease of nervous system, unspecified; R90.89 Other abnormal findings on diagnostic imaging of central nervous system
CPT/HCPCS: 70553; A9576

== ENCOUNTER → 2025-01-01 | Outpatient (CLI) | payer BC, MEDICARE ==
[~2025-01-01] MED LIST changes: -FLOM0.4C39 PO; -PROHANCE 279.3MG/ML 15ML VIAL As Ordered ONE; -PROHANCE 279.3MG/ML 5ML VIAL As Ordered ONE; +TAMS-18 PO
== END ==
LOC: M RAD 10:28
PROVIDERS: ATTEND Otolaryngology
DX: E04.2 Nontoxic multinodular goiter (principal); N20.0 Calculus of kidney

== ENCOUNTER → 2025-01-01 | Outpatient (CLI) | payer BC, MEDICARE | LOC: M RAD 10:21 | PROVIDERS: ATTEND Urology | DX: N20.0 Calculus of kidney (principal) ==

== ENCOUNTER → 2025-01-11 | Outpatient (CLI) | payer BC, MEDICARE | LOC: M WHC 08:55 | PROVIDERS: ATTEND Surgery | DX: N63.21 Unspecified lump in the left breast, upper outer quadrant (principal); R92.322 Mammographic fibroglandular density, left breast | CPT/HCPCS: 77065; G0279 ==

== ENCOUNTER → 2025-01-25 | Outpatient (CLI) | payer BC, MEDICARE | LOC: M PLAIMG 09:35 | PROVIDERS: ATTEND Urology | DX: N20.0 Calculus of kidney (principal); R91.1 Solitary pulmonary nodule; N21.0 Calculus in bladder; K57.30 Diverticulosis of large intestine without perforation or abscess without bleeding; K40.20 Bilateral inguinal hernia, without obstruction or gangrene, not specified as recurrent; K42.9 Umbilical hernia without obstruction or gangrene ==

== ENCOUNTER → 2025-02-06 | Outpatient (CLI) | payer BC, MEDICARE | LOC: M WHC 11:46 | PROVIDERS: ATTEND Surgery | DX: N63.21 Unspecified lump in the left breast, upper outer quadrant (principal) ==

== ENCOUNTER → 2025-03-15 | Outpatient (CLI) | payer BC, MEDICARE ==
[2025-03-15 09:05] VITALS: TEMP 98.6
[2025-03-15 10:12] VITALS: BP 152/76; O2SAT 98
== END ==
LOC: M WHCPRO 09:02
PROVIDERS: ATTEND Surgery
DX: N63.25 Unspecified lump in the left breast, overlapping quadrants (principal); N63.32 Unspecified lump in axillary tail of the left breast